=== PATIENT | female | born 1970 | race Caucasian/White ===

== ENCOUNTER 2021-11-20 08:19 | Day surgery (SDC) | payer OTHER ==
[2021-10-31 14:28] LABS: SARS-CoV-2 Antigen Rapid Res Negative (Negative)
[2021-11-20] MEDS ORDERED: Ringers Lactate 1,000 ML IV ONE (08:45)
[2021-11-20 09:21] VITALS: O2SAT 100
[2021-11-20] MEDS ORDERED: propofoL 200 MG/20 ML VIAL IV ONE ×2 (10:00→10:58)
[2021-11-20] MEDS ORDERED: LIDOCAINE 1% MPF 5 ML VIAL ONE (10:00)
[2021-11-20] MEDS ORDERED: GLUCAGON 1 MG/VIAL ONE (10:35)
--- NOTE | 2021-11-20 10:48 | ENDO RPT ---
[address], [address] COLONOSCOPY PROCEDURE REPORT EXAM DATE: 11/20/2021 PATIENT NAME: Ana Raines MR #: [id number] BIRTHDATE: 1970 ATTENDING: Tyler Up M.D. STATUS: outpatient WALL TAPER: Marielos SHARP and Sameer Metz RN INDICATIONS: The patient is a 51 yr old Female here for a colonoscopy due to colon cancer screening PROCEDURE PERFORMED: Screening Colonoscopy MEDICATIONS: Per Anesthesia. ESTIMATED BLOOD LOSS: None CONSENT: The patient understands the risks and benefits of the procedure and understands that these risks include, but are not limited to: sedation, allergic reaction, infection, perforation and/or bleeding. Alternative means of evaluation and treatment include, among others: physical exam, x-rays, and/or surgical intervention. The patient elects to proceed with this endoscopic procedure. DESCRIPTION OF PROCEDURE: During intra-op preparation period all mechanical medical equipment was checked for proper function. Hand hygiene and appropriate measures for infection prevention was taken. Procedure, possible complications, alternatives including, but not limited to possibility of bleeding, perforation, tear, infection, sepsis, need for surgery, need for blood transfusion, were explained to the patient. After the risks, benefits and alternatives of the procedure were thoroughly explained, Informed consent was verified, confirmed and timeout was successfully executed by the treatment team. The patient was placed in the left lateral position. A digital rectal exam was performed and revealed external hemorrhoids. After appropriate level of anesthesia, the scope was passed. The EC-[id number] ([id number] endoscope was introduced through the anus and advanced to the cecum, which was identified by the ileocecal valve. The quality of the prep was good. The instrument was then slowly withdrawn as the colon was fully examined. Scope withdrawal time was 22 minutes. COLON FINDINGS: Moderate sized internal and external hemorrhoids were found. Mild diverticulosis was noted in the sigmoid colon. Retroflexed views revealed no abnormalities and Retroflexed views revealed medium hemorrhoids. The scope was then completely withdrawn from the patient and the procedure terminated. ADVERSE EVENTS: There were no complications. IMPRESSIONS: 1. Moderate sized internal and external hemorrhoids 2. Mild diverticulosis was noted in the sigmoid colon RECOMMENDATIONS: 1. follow-up: office 1 week(s) 2. Metamucil 3. fiber rich diet 4. increase dietary water 5. no seeds in diet RECALL: Return in 0 year(s) for Colonoscopy. Tyler Up M.D. eSigned: Tyler Up M.D. 11/20/2021 10:48 AM cc: CPT CODES: ICD9 CODES: PATIENT NAME: YannaAna MR#: [id number]
[2021-11-20 13:01] VITALS: BP 102/59; TEMP 97.6
== END 2021-11-20 11:15 | disposition home or self-care (01) ==
LOC: OR 08:19
PROVIDERS: ATTEND Surgery
PROC: 0DJD8ZZ Inspection of Lower Intestinal Tract, Via Natural or Artificial Opening Endoscopic (ICD-10-PCS; principal; 2021-11-20 10:00)
DX: Z12.11 Encounter for screening for malignant neoplasm of colon (principal); E78.00 Pure hypercholesterolemia, unspecified; F32.A Depression, unspecified; I10 Essential (primary) hypertension; K64.8 Other hemorrhoids; K64.4 Residual hemorrhoidal skin tags; K57.30 Diverticulosis of large intestine without perforation or abscess without bleeding; Z20.822 Contact with and (suspected) exposure to COVID-19
CPT/HCPCS: 36415; 87811; 45378; J2704 ×2; J1610; J7120